=== PATIENT | male | born 1980 | race Two or more races ===

== ENCOUNTER 2017-11-17 11:39 | Emergency (ER) | payer MEDICAID ==
[2017-11-17 11:58] VITALS: BP 139/93; PULSE 82; RESP 16; TEMP 96; O2SAT 99
--- NOTE | 2017-11-17 12:26 | ED PDOC ---
HPI: Back Time Seen by Provider: 11/17/17 12:07 Chief Complaint (Nursing): Back Pain Chief Complaint (Provider): Back Pain History Per: Patient History/Exam Limitations: no limitations Onset/Duration Of Symptoms: Days (x3) Current Symptoms Are (Timing): Still Present Additional Complaint(s): Quoc Varma is a 37 year old male, who presents to the ED complaining of lower back pain x3 days. Patient states he was lifting a heavy box when he felt he "tweaked" something in his lower back 3 days ago. He states he took Naproxen and Ibuprofen 2 days ago without relief and he states today the pain was unbearable, prompting him to present to the ED. Patient states he has history of low back pain. He denies any bowel or bladder dysfunction. PMD: None Past Medical History Reviewed: Historical Data, Nursing Documentation, Vital Signs Vital Signs: Last Vital Signs Temp 96.0 F L 11/17/17 11:56 Pulse 82 11/17/17 11:56 Resp 16 11/17/17 11:56 BP 139/93 H 11/17/17 11:56 Pulse Ox 99 11/17/17 11:56 - Medical History PMH: Back Problems - Family History Family History: States: No Known Family Hx - Living Arrangements Living Arrangements: With Family - Social History Current smoker - smoking cessation education provided: Yes Alcohol: None Drugs: Denies - Allergies Allergies/Adverse Reactions: Allergies Allergy/AdvReac Type Severity Reaction Status Date / Time No Known Allergies Allergy Verified 11/17/17 11:56 Review of Systems ROS Statement: Except As Marked, All Systems Reviewed And Found Negative Genitourinary Male: Negative for: Dysuria, Frequency, Incontinence, Hematuria Musculoskeletal: Positive for: Back Pain (lower, s/p heavy lifting 3 days ago) Physical Exam - Reviewed Nursing Documentation Reviewed: Yes Vital Signs Reviewed: Yes - Physical Exam Appears: Positive for: Well, Non-toxic, No Acute Distress Skin: Positive for: Normal Color, Warm. Negative for: Rash Eye Exam: Positive for: Normal appearance Neck: Positive for: Painless ROM Back: Positive for: Vertebral Tenderness (lumbar region), Muscle Spasm (across lower lumbar region, negative bilateral straight leg raise) Extremity: Positive for: Normal ROM Neurologic/Psych: Positive for: Alert, Oriented (x3), Gait (steady) - ECG O2 Sat by Pulse Oximetry: 99 (RA) Pulse Ox Interpretation: Normal Medical Decision Making Medical Decision Making: Time: 12:19 Initial Impression: Lumbar strain Plan: --Toradol 30 mg IM --Tylenol 975 mg PO --Reevaluation Time: 12:25 --Patient eloped from ED before meds were given. Scribe Attestation: Documented by Wilemr Marc, acting as a scribe for Fartun Carcamo PA-C Provider Scribe Attestation: All medical record entries made by the Scribe were at my direction and personally dictated by me. I have reviewed the chart and agree that the record accurately reflects my personal performance of the history, physical exam, medical decision making, and the department course for this patient. I have also personally directed, reviewed, and agree with the discharge instructions and disposition. Disposition - Clinical Impression Clinical Impression: Left before treatment completed, Back strain - Patient ED Disposition Is Patient to be Admitted: No - Disposition Disposition: Eloped Disposition Time: 12:25 Condition: UNKNOWN Forms: [employer] (Stateless)
== END 2017-11-17 12:47 | disposition left against medical advice (07) ==
LOC: H.ER 11:39
DX: S39.012A Strain of muscle, fascia and tendon of lower back, initial encounter (principal); X50.9XXA Other and unspecified overexertion or strenuous movements or postures, initial encounter; Y92.89 Other specified places as the place of occurrence of the external cause; F17.200 Nicotine dependence, unspecified, uncomplicated